=== PATIENT | male | born 1945 | race Caucasian/White ===

== ENCOUNTER 2016-12-31 09:22 | Outpatient (RCR) | payer MEDICARE | END 2017-01-11 | disposition home or self-care (01) | LOC: M PT 09:22 | PROVIDERS: ATTEND Orthopaedic Surgery | DX: Z51.89 Encounter for other specified aftercare (principal); M25.511 Pain in right shoulder | CPT/HCPCS: 97110; 97161; G8984; G8985 ==

== ENCOUNTER → 2017-02-04 | Outpatient (REF) | payer MEDICARE | LOC: M LAB REF 08:45 | PROVIDERS: ATTEND Internal Medicine Gastroenterology | DX: K50.90 Crohn's disease, unspecified, without complications (principal); K50.00 Crohn's disease of small intestine without complications; M46.1 Sacroiliitis, not elsewhere classified; R19.7 Diarrhea, unspecified ==

== ENCOUNTER → 2017-05-03 | Outpatient (CLI) | payer MEDICARE ==
[2017-05-03 12:07] LABS: MEAN CORPUSCULAR HEMOGLOBIN 31.2 pg (27.0-33.0); MEAN CORPUSCULAR HGB CONC 33.5 g/dl (32.0-36.5); MEAN CORPUSCULAR VOLUME 93.2 fl (80.0-96.0); PLATELET COUNT, AUTOMATED 227 10^3/uL (150-450); RED CELL DISTRIBUTION WIDTH 13.5 % (11.5-14.5)
[2017-05-03 12:51] LABS: ALBUMIN 4.1 GM/DL (3.2-5.2); ALBUMIN/GLOBULIN RATIO 1.32 (1.00-1.93); ALKALINE PHOSPHATASE 93 U/L (45-117); ALT/SGPT 26 U/L (12-78); ANION GAP 6 MEQ/L (8-16); AST/SGOT 19 U/L (7-37); BILIRUBIN,TOTAL 0.9 MG/DL (0.2-1.0); BLOOD UREA NITROGEN 10 MG/DL (7-18); CALCIUM LEVEL 9.6 MG/DL (8.8-10.2); CARBON DIOXIDE LEVEL 28 MEQ/L (21-32); CHLORIDE LEVEL 100 MEQ/L (98-107); CREATININE FOR GFR 0.76 MG/DL (0.70-1.30); GLOMERULAR FILTRATION RATE > 60.0 (>42); GLUCOSE, FASTING 89 MG/DL (83-110); POTASSIUM SERUM 4.4 MEQ/L (3.5-5.1); SODIUM LEVEL 134 MEQ/L (136-145); TOTAL PROTEIN 7.2 GM/DL (6.4-8.2)
[2017-05-03 13:02] LABS: ERYTHROCYTE SEDIMENTATION RATE 8 mm/hr (0-20)
== END ==
LOC: M LAB 11:00
PROVIDERS: ATTEND Internal Medicine Gastroenterology
DX: K50.00 Crohn's disease of small intestine without complications (principal)

== ENCOUNTER 2017-05-12 09:51 | Outpatient (RCR) | payer MEDICARE | END 2017-05-13 | LOC: M PT 09:51 | PROVIDERS: ATTEND Orthopaedic Surgery | DX: S46.011D Strain of muscle(s) and tendon(s) of the rotator cuff of right shoulder, subsequent encounter (principal); X58.XXXD Exposure to other specified factors, subsequent encounter; Y93.9 Activity, unspecified; Y92.9 Unspecified place or not applicable; Y99.8 Other external cause status | CPT/HCPCS: 97110; G8978; G8979 ==

== ENCOUNTER 2017-05-17 15:07 | Outpatient (RCR) | payer MEDICARE | END 2017-06-13 | LOC: M PT 15:07 | DX: S46.011D Strain of muscle(s) and tendon(s) of the rotator cuff of right shoulder, subsequent encounter (principal); M25.511 Pain in right shoulder | CPT/HCPCS: 97110 ==

== ENCOUNTER 2017-06-16 10:52 | Outpatient (RCR) | payer MEDICARE | END 2017-07-14 | LOC: M PT 10:52 | DX: S46.011D Strain of muscle(s) and tendon(s) of the rotator cuff of right shoulder, subsequent encounter (principal); M25.511 Pain in right shoulder | CPT/HCPCS: 97110 ==

== ENCOUNTER 2017-09-17 11:48 | Outpatient (RCR) | payer MEDICARE | END 2017-10-11 | LOC: M PT 11:48 | DX: Z51.89 Encounter for other specified aftercare (principal); M16.11 Unilateral primary osteoarthritis, right hip | CPT/HCPCS: 97110 ==

== ENCOUNTER → 2017-11-04 | Outpatient (REF) | payer MEDICARE ==
[2017-11-04 19:01] LABS: C REACTIVE PROTEIN QUANTITATIV 0.32 MG/DL (0.00-0.30)
== END ==
LOC: M LAB REF 17:04
DX: K50.00 Crohn's disease of small intestine without complications (principal)
CPT/HCPCS: 86140

== ENCOUNTER 2017-12-05 20:15 | Emergency (ER) | payer MEDICARE | END 2017-12-05 23:11 | disposition home or self-care (01) | LOC: M ED 20:15 | DX: S50.12XA Contusion of left forearm, initial encounter (principal); X58.XXXA Exposure to other specified factors, initial encounter; Y92.89 Other specified places as the place of occurrence of the external cause; I10 Essential (primary) hypertension; K50.90 Crohn's disease, unspecified, without complications; Z86.2 Personal history of diseases of the blood and blood-forming organs and certain disorders involving the immune mechanism; Z98.890 Other specified postprocedural states; Z79.82 Long term (current) use of aspirin; Z79.899 Other long term (current) drug therapy; Z79.52 Long term (current) use of systemic steroids; Z95.2 Presence of prosthetic heart valve | CPT/HCPCS: 76882 ==

== ENCOUNTER → 2018-02-07 | Outpatient (REF) | payer MEDICARE ==
[2018-02-07 19:31] LABS: C REACTIVE PROTEIN QUANTITATIV < 0.30 MG/DL (0.00-0.30)
== END ==
LOC: M LAB REF 17:08
DX: K50.00 Crohn's disease of small intestine without complications (principal)
CPT/HCPCS: 86140

== ENCOUNTER → 2018-03-14 | Outpatient (REF) | payer MEDICARE ==
[2018-03-14 14:02] LABS: INR 0.96; PROTHROMBIN TIME 12.9 SECONDS (12.1-14.4)
[2018-03-14 14:03] LABS: PARTIAL THROMBOPLASTIN TIME 31.9 SECONDS (25.4-37.6)
[2018-03-14 14:07] LABS: APPEARANCE, URINE HAZY (CLEAR); BACTERIA, URINE AUTO NEGATIVE (NEGATIVE); BILIRUBIN, URINE AUTO NEGATIVE (NEGATIVE); BLOOD, URINE BLOOD NEGATIVE (NEGATIVE); COLOR, URINE YELLOW (YELLOW); GLUCOSE, URINE (UA) AUTO NEGATIVE (NEGATIVE); KETONE, URINE AUTO NEGATIVE (NEGATIVE); LEUKOCYTE ESTERASE, URINE AUTO NEGATIVE (NEGATIVE); MUCUS, URINE SMALL (NEGATIVE); NITRITE, URINE AUTO NEGATIVE (NEGATIVE); PROTEIN, URINE AUTO NEGATIVE (NEGATIVE); RBC, URINE AUTO 4 /HPF (0-3); SPECIFIC GRAVITY URINE AUTO 1.017 (1.002-1.035); SQUAMOUS EPITHELIAL CELL UR AU 0 /HPF (0-6); UROBILINOGEN, URINE AUTO 0.2 mg/dL (0.0-2.0); WBC, URINE AUTO 5 /HPF (0-3)
== END ==
LOC: M LAB REF 13:48
DX: Z01.818 Encounter for other preprocedural examination (principal); Z79.01 Long term (current) use of anticoagulants
CPT/HCPCS: 85610

== ENCOUNTER 2018-03-16 09:07 | Outpatient (RCR) | payer MEDICARE | END 2018-04-13 | LOC: M PT 09:07 | DX: M16.11 Unilateral primary osteoarthritis, right hip (principal) | CPT/HCPCS: 97110 ==

== ENCOUNTER → 2018-03-21 | Outpatient (REF) | payer MEDICARE | LOC: M LAB REF 18:15 | DX: L81.9 Disorder of pigmentation, unspecified (principal); D75.9 Disease of blood and blood-forming organs, unspecified | CPT/HCPCS: 88305 ==

== ENCOUNTER → 2018-04-06 | Outpatient (REF) | payer MEDICARE ==
[2018-04-06 18:30] LABS: C REACTIVE PROTEIN QUANTITATIV 3.14 MG/DL (0.00-0.30)
== END ==
LOC: M LAB REF 16:59
DX: R50.9 Fever, unspecified (principal)
CPT/HCPCS: 86140

== ENCOUNTER → 2018-04-12 | Outpatient (REF) | payer MEDICARE | LOC: M LAB REF 16:50 | DX: M79.604 Pain in right leg (principal); Z96.641 Presence of right artificial hip joint; M16.11 Unilateral primary osteoarthritis, right hip | CPT/HCPCS: 86140 ==

== ENCOUNTER → 2018-04-12 | Outpatient (REF) | payer MEDICARE ==
[2018-04-12 14:10] LABS: C REACTIVE PROTEIN QUANTITATIV 3.03 MG/DL (0.00-0.30)
== END ==
LOC: M LAB REF 13:39
DX: M16.11 Unilateral primary osteoarthritis, right hip (principal)

== ENCOUNTER 2018-04-18 10:08 | Outpatient (RCR) | payer MEDICARE | END 2018-05-13 | disposition home or self-care (01) | LOC: M PT 10:08 | DX: C84.A0 Cutaneous T-cell lymphoma, unspecified, unspecified site (principal) | CPT/HCPCS: 97028 ==

== ENCOUNTER → 2018-04-18 | Outpatient (REF) | payer MEDICARE ==
[2018-04-18 18:05] LABS: BASO # 0.1 10^3/uL (0.0-0.2); BASO % 0.6 % (0.0-1.0); EOS # 0.3 10^3/uL (0.0-0.50); EOS % 3.5 % (0.0-3.0); HEMOGLOBIN 10.9 g/dl (13.5-17.5); IMMATURE GRANULOCYTE % 0.9 % (0-3.0); LYMPH # 1.7 10^3/uL (1.5-4.5); LYMPH % 19.4 % (24.0-44.0); MEAN CORPUSCULAR HEMOGLOBIN 30.6 pg (27.0-33.0); MEAN CORPUSCULAR HGB CONC 31.1 g/dl (32.0-36.5); MEAN CORPUSCULAR VOLUME 98.3 fl (80.0-96.0); MONO % 11.7 % (0.0-5.0); NEUTROPHILS # 5.5 10^3/uL (1.8-7.7); NEUTROPHILS % 63.9 % (36.0-66.0); PLATELET COUNT, AUTOMATED 429 10^3/uL (150-450); RED BLOOD COUNT 3.56 10^6/uL (4.30-6.10); RED CELL DISTRIBUTION WIDTH 13.8 % (11.5-14.5); WHITE BLOOD COUNT 8.7 10^3/uL (4.0-10.0)
[2018-04-18 18:26] LABS: ALBUMIN 4.1 GM/DL (3.2-5.2); ALBUMIN/GLOBULIN RATIO 1.32 (1.00-1.93); ALKALINE PHOSPHATASE 137 U/L (45-117); ALT/SGPT 18 U/L (12-78); ANION GAP 8 MEQ/L (8-16); AST/SGOT 21 U/L (7-37); BILIRUBIN,TOTAL 0.6 MG/DL (0.2-1.0); BLOOD UREA NITROGEN 12 MG/DL (7-18); CALCIUM LEVEL 9.1 MG/DL (8.8-10.2); CARBON DIOXIDE LEVEL 29 MEQ/L (21-32); CHLORIDE LEVEL 99 MEQ/L (98-107); CREATININE FOR GFR 0.73 MG/DL (0.70-1.30); FREE T4 0.93 NG/DL (0.76-1.46); GLOMERULAR FILTRATION RATE > 60.0 (>42); GLUCOSE, FASTING 92 MG/DL (70-100); LDH LACTATE DEHYDROGENASE 444 U/L (87-241); POTASSIUM SERUM 4.4 MEQ/L (3.5-5.1); SODIUM LEVEL 136 MEQ/L (136-145); TOTAL PROTEIN 7.2 GM/DL (6.4-8.2); URIC ACID 3.5 MG/DL (3.5-7.2)
[2018-04-18 19:07] LABS: HIV 1&2 SCREEN CENTAUR NEGATIVE (NEGATIVE)
[2018-04-18 19:17] LABS: SLIDE REVIEW Report; SOURCE PERIPHERAL SMEAR
== END ==
LOC: M LABDRAWP 15:08
DX: D53.9 Nutritional anemia, unspecified (principal)
CPT/HCPCS: 83615

== ENCOUNTER → 2018-06-13 | Outpatient (RCR) | payer MEDICARE ==
[~2018-06-13] MED LIST: ACID100C PO; ASPI81TA85 PO; CENTCHW4 PO; GABA-845 PO; LIPO FLAVONOID PO; LOSA-4; MAGN250T9 PO; METO25TA4 PO; PANT20TA2 PO; PRED5TA PO; SULF500T2; remicade IV
== END ==
LOC: M PT 05-16 12:22
PROVIDERS: ATTEND Orthopaedic Surgery
DX: C84.A0 Cutaneous T-cell lymphoma, unspecified, unspecified site (principal)

== ENCOUNTER → 2018-06-21 | Outpatient (CLI) | payer MEDICARE ==
[~2018-06-21] MED LIST changes: -LOSA-4; +LOSA100T50
== END ==
LOC: M LAB 15:10
PROVIDERS: ATTEND Internal Medicine Gastroenterology
DX: K50.00 Crohn's disease of small intestine without complications (principal)

== ENCOUNTER → 2018-07-12 | Outpatient (REF) | payer MEDICARE | LOC: M SFHCPLAZ 15:08 | PROVIDERS: ATTEND Dermatology | DX: C84.A0 Cutaneous T-cell lymphoma, unspecified, unspecified site (principal) ==

== ENCOUNTER 2018-07-13 11:00 | Outpatient (RCR) | payer MEDICARE | END 2018-07-14 | LOC: M PT 11:00 | PROVIDERS: ATTEND Orthopaedic Surgery | DX: C84.A0 Cutaneous T-cell lymphoma, unspecified, unspecified site (principal) ==

== ENCOUNTER → 2018-08-11 | Outpatient (RCR) | payer MEDICARE | LOC: M PT 07-15 11:09 | PROVIDERS: ATTEND Orthopaedic Surgery | DX: C84.A0 Cutaneous T-cell lymphoma, unspecified, unspecified site (principal) ==

== ENCOUNTER 2018-09-08 10:21 | Outpatient (RCR) | payer MEDICARE | END 2018-09-11 | LOC: M PT 10:21 | PROVIDERS: ATTEND Orthopaedic Surgery | DX: C84.A0 Cutaneous T-cell lymphoma, unspecified, unspecified site (principal) ==

== ENCOUNTER → 2018-09-19 | Outpatient (REF) | payer MEDICARE ==
[2018-09-19 18:06] LABS: ALT/SGPT 29 U/L (12-78); BILIRUBIN,TOTAL 0.5 MG/DL (0.2-1.0); BLOOD UREA NITROGEN 11 MG/DL (7-18); C REACTIVE PROTEIN QUANTITATIV < 0.30 MG/DL (0.00-0.30); CALCIUM LEVEL 9.1 MG/DL (8.8-10.2); CARBON DIOXIDE LEVEL 26 MEQ/L (21-32); CHLORIDE LEVEL 106 MEQ/L (98-107); CREATININE FOR GFR 0.94 MG/DL (0.70-1.30); GLOMERULAR FILTRATION RATE > 60.0 (>42); GLUCOSE, FASTING 122 MG/DL (70-100); POTASSIUM SERUM 4.4 MEQ/L (3.5-5.1); SODIUM LEVEL 139 MEQ/L (136-145); TOTAL PROTEIN 7.1 GM/DL (6.4-8.2)
== END ==
LOC: M LABDRAWP 16:54
PROVIDERS: ATTEND Surgery
DX: K50.00 Crohn's disease of small intestine without complications (principal)

== ENCOUNTER 2018-10-06 11:35 | Outpatient (RCR) | payer MEDICARE | END 2018-10-11 | LOC: M PT 11:35 | PROVIDERS: ATTEND Orthopaedic Surgery | DX: C84.A0 Cutaneous T-cell lymphoma, unspecified, unspecified site (principal) ==

== ENCOUNTER → 2018-10-14 | Outpatient (CLI) | payer MEDICARE ==
[2018-10-14 11:12] LABS: BLOOD UREA NITROGEN 11 MG/DL (7-18); CREATININE FOR GFR 0.92 MG/DL (0.70-1.30); GLOMERULAR FILTRATION RATE > 60.0 (>42)
== END ==
LOC: M LAB 09:58
PROVIDERS: ATTEND Orthopaedic Surgery
DX: Z00.00 Encounter for general adult medical examination without abnormal findings (principal)

== ENCOUNTER 2018-11-08 10:30 | Outpatient (RCR) | payer MEDICARE | END 2018-11-11 | LOC: M PT 10:30 | PROVIDERS: ATTEND Orthopaedic Surgery | DX: C84.40 Peripheral T-cell lymphoma, not elsewhere classified, unspecified site (principal) ==

== ENCOUNTER → 2018-12-08 | Outpatient (REF) | payer MEDICARE | LOC: M LAB REF 12:26 | PROVIDERS: ATTEND Internal Medicine | DX: K50.00 Crohn's disease of small intestine without complications (principal) ==

== ENCOUNTER → 2019-03-13 | Outpatient (CLI) | payer MEDICARE ==
[2019-03-13 12:16] LABS: PERCENT SATURATION 41.9 % (19.7-50.0)
== END ==
LOC: M LAB 10:47
PROVIDERS: ATTEND Orthopaedic Surgery
DX: M25.559 Pain in unspecified hip (principal); D63.8 Anemia in other chronic diseases classified elsewhere; M16.7 Other unilateral secondary osteoarthritis of hip; K50.00 Crohn's disease of small intestine without complications

== ENCOUNTER → 2019-03-13 | Outpatient (CLI) | payer MEDICARE ==
[2019-03-13 11:42] LABS: HEMATOCRIT 45.3 % (42.0-52.0); MEAN CORPUSCULAR HEMOGLOBIN 32.7 pg (27.0-33.0); MEAN CORPUSCULAR HGB CONC 33.1 g/dl (32.0-36.5); MEAN CORPUSCULAR VOLUME 98.7 fl (80.0-96.0); PLATELET COUNT, AUTOMATED 149 10^3/uL (150-450); RED BLOOD COUNT 4.59 10^6/uL (4.30-6.10); WHITE BLOOD COUNT 8.5 10^3/uL (4.0-10.0)
[2019-03-13 12:02] LABS: ERYTHROCYTE SEDIMENTATION RATE 7 mm/hr (0-20)
[2019-03-13 12:17] LABS: ALBUMIN 4.1 GM/DL (3.2-5.2); ALT/SGPT 36 U/L (12-78); BLOOD UREA NITROGEN 10 MG/DL (7-18); C REACTIVE PROTEIN QUANTITATIV < 0.30 MG/DL (0.00-0.30); CALCIUM LEVEL 9.4 MG/DL (8.8-10.2); CARBON DIOXIDE LEVEL 29 MEQ/L (21-32); CHLORIDE LEVEL 103 MEQ/L (98-107); CREATININE FOR GFR 0.92 MG/DL (0.70-1.30); GLOMERULAR FILTRATION RATE > 60.0 (>42); GLUCOSE, FASTING 95 MG/DL (70-100); SODIUM LEVEL 139 MEQ/L (136-145); TOTAL PROTEIN 7.6 GM/DL (6.4-8.2)
== END ==
LOC: M LAB 10:51
PROVIDERS: ATTEND Internal Medicine Gastroenterology
DX: K50.00 Crohn's disease of small intestine without complications (principal)

== ENCOUNTER 2019-03-20 09:57 | Outpatient (RCR) | payer MEDICARE | END 2019-04-13 | LOC: M PT 09:57 | PROVIDERS: ATTEND Orthopaedic Surgery | DX: M16.7 Other unilateral secondary osteoarthritis of hip (principal); M25.559 Pain in unspecified hip ==

== ENCOUNTER 2019-05-10 11:37 | Outpatient (RCR) | payer MEDICARE | END 2019-05-13 | LOC: M PT 11:37 | PROVIDERS: ATTEND Orthopaedic Surgery | DX: Z51.89 Encounter for other specified aftercare (principal); M16.7 Other unilateral secondary osteoarthritis of hip; M25.552 Pain in left hip ==

== ENCOUNTER 2019-05-26 11:02 | Outpatient (RCR) | payer MEDICARE | END 2019-06-13 | LOC: M PT 11:02 | PROVIDERS: ATTEND Orthopaedic Surgery | DX: Z51.89 Encounter for other specified aftercare (principal); M16.7 Other unilateral secondary osteoarthritis of hip; M25.552 Pain in left hip ==

== ENCOUNTER → 2019-06-22 | Outpatient (REF) | payer MEDICARE | LOC: M LAB REF 09:34 | PROVIDERS: ATTEND Dermatology | DX: C44.1122 Basal cell carcinoma of skin of right lower eyelid, including canthus (principal); D23.5 Other benign neoplasm of skin of trunk ==

== ENCOUNTER → 2019-07-04 | Outpatient (CLI) | payer MEDICARE ==
[2019-07-04 15:43] LABS: HEMATOCRIT 45.1 % (42.0-52.0); HEMOGLOBIN 14.8 g/dl (13.5-17.5); MEAN CORPUSCULAR HGB CONC 32.8 g/dl (32.0-36.5); MEAN CORPUSCULAR VOLUME 91.3 fl (80.0-96.0); PLATELET COUNT, AUTOMATED 184 10^3/uL (150-450); RED BLOOD COUNT 4.94 10^6/uL (4.30-6.10); WHITE BLOOD COUNT 9.9 10^3/uL (4.0-10.0)
[2019-07-04 16:15] LABS: ALT/SGPT 28 U/L (12-78); BILIRUBIN,TOTAL 0.5 MG/DL (0.2-1.0); BLOOD UREA NITROGEN 12 MG/DL (7-18); C REACTIVE PROTEIN QUANTITATIV < 0.30 MG/DL (0.00-0.30); CALCIUM LEVEL 8.8 MG/DL (8.8-10.2); CARBON DIOXIDE LEVEL 27 MEQ/L (21-32); CHLORIDE LEVEL 104 MEQ/L (98-107); CREATININE FOR GFR 0.77 MG/DL (0.70-1.30); ERYTHROCYTE SEDIMENTATION RATE 3 mm/hr (0-20); GLOMERULAR FILTRATION RATE > 60.0 (>42); GLUCOSE, FASTING 115 MG/DL (70-100); POTASSIUM SERUM 4.2 MEQ/L (3.5-5.1); SODIUM LEVEL 139 MEQ/L (136-145); TOTAL PROTEIN 7.3 GM/DL (6.4-8.2)
== END ==
LOC: M LAB 14:40
PROVIDERS: ATTEND Internal Medicine Gastroenterology
DX: K50.00 Crohn's disease of small intestine without complications (principal)

== ENCOUNTER → 2019-10-09 | Outpatient (REF) | payer MEDICARE | LOC: M LAB REF 09:18 | PROVIDERS: ATTEND Dermatology | DX: C44.1122 Basal cell carcinoma of skin of right lower eyelid, including canthus (principal); L90.5 Scar conditions and fibrosis of skin ==

== ENCOUNTER → 2019-11-28 | Outpatient (REF) | payer MEDICARE ==
[~2019-11-28] MED LIST changes: -ASPI81TA85 PO; +ASPI81TA86 PO; -PANT20TA2 PO; +PANT20TA6 PO
== END ==
LOC: M LAB REF 11:28
PROVIDERS: ATTEND Internal Medicine
DX: K50.00 Crohn's disease of small intestine without complications (principal)

== ENCOUNTER 2020-02-06 11:22 | Outpatient (RCR) | payer MEDICARE | END 2020-02-12 | LOC: M PT 11:22 | PROVIDERS: ATTEND Orthopaedic Surgery | DX: M25.512 Pain in left shoulder (principal) ==

== ENCOUNTER 2020-02-14 11:32 | Outpatient (RCR) | payer MEDICARE | END 2020-03-13 | LOC: M PT 11:32 | PROVIDERS: ATTEND Orthopaedic Surgery | DX: M25.512 Pain in left shoulder (principal) ==

== ENCOUNTER → 2020-03-13 | Outpatient (REF) | payer MEDICARE | LOC: M LAB REF 15:05 | PROVIDERS: ATTEND Dermatology | DX: C44.529 Squamous cell carcinoma of skin of other part of trunk (principal) ==

== ENCOUNTER → 2020-03-29 | Outpatient (CLI) | payer MEDICARE | LOC: M LABSMTC 12:53 | DX: Z01.812 Encounter for preprocedural laboratory examination (principal); Z20.828 Contact with and (suspected) exposure to other viral communicable diseases | CPT/HCPCS: C9803; U0003 ==

== ENCOUNTER → 2020-04-01 | Outpatient (REF) | payer MEDICARE | LOC: M LAB REF 12:23 | PROVIDERS: ATTEND Internal Medicine | DX: K50.012 Crohn's disease of small intestine with intestinal obstruction (principal) ==

== ENCOUNTER → 2020-07-15 | Outpatient (REF) | payer MEDICARE | LOC: M LAB REF 17:06 | PROVIDERS: ATTEND Dermatology | DX: L90.5 Scar conditions and fibrosis of skin (principal) ==

== ENCOUNTER → 2020-10-04 | Outpatient (REF) | payer MEDICARE | LOC: M LAB REF 11:26 | PROVIDERS: ATTEND Nurse Practitioner Family | DX: K50.00 Crohn's disease of small intestine without complications (principal); K59.1 Functional diarrhea ==

== ENCOUNTER → 2020-11-27 | Outpatient (REF) | payer MEDICARE ==
[~2020-11-27] MED LIST changes: +GABA-283 PO; -GABA-845 PO
[2020-11-27 13:39] LABS: APPEARANCE, URINE CLEAR (CLEAR); BACTERIA, URINE AUTO NEGATIVE (NEGATIVE); BILIRUBIN, URINE AUTO NEGATIVE (NEGATIVE); BLOOD, URINE BLOOD 1+ (NEGATIVE); COLOR, URINE AMBER (YELLOW); GLUCOSE, URINE (UA) AUTO NEGATIVE (NEGATIVE); KETONE, URINE AUTO NEGATIVE (NEGATIVE); LEUKOCYTE ESTERASE, URINE AUTO NEGATIVE (NEGATIVE); NITRITE, URINE AUTO NEGATIVE (NEGATIVE); PROTEIN, URINE AUTO NEGATIVE (NEGATIVE); RBC, URINE AUTO 0 /HPF (0-3); SPECIFIC GRAVITY URINE AUTO 1.018 (1.002-1.035); SQUAMOUS EPITHELIAL CELL UR AU 0 /HPF (0-6); UROBILINOGEN, URINE AUTO 0.2 mg/dL (0.0-2.0); WBC, URINE AUTO 0 /HPF (0-3)
== END ==
LOC: M LAB REF 12:05
PROVIDERS: ATTEND Internal Medicine
DX: K50.00 Crohn's disease of small intestine without complications (principal); R31.9 Hematuria, unspecified

== ENCOUNTER → 2021-01-20 | Outpatient (CLI) | payer MEDICARE ==
[~2021-01-20] MED LIST changes: +LOSA100T45; -LOSA100T50
== END ==
LOC: M WUC 13:31
PROVIDERS: ATTEND Physician Assistant
DX: M25.552 Pain in left hip (principal); M54.5 Low back pain; Z96.642 Presence of left artificial hip joint; Z98.1 Arthrodesis status; M25.78 Osteophyte, vertebrae

== ENCOUNTER → 2021-04-02 | Outpatient (REF) | payer MEDICARE ==
[~2021-04-02] MED LIST changes: -LOSA100T45; +LOSA100T50
== END ==
LOC: M LAB REF 16:18
PROVIDERS: ATTEND Internal Medicine
DX: Z51.81 Encounter for therapeutic drug level monitoring (principal)

== ENCOUNTER → 2021-05-07 | Outpatient (CLI) | payer MEDICARE | LOC: M LABSMTC 11:29 | PROVIDERS: ATTEND Orthopaedic Surgery | DX: Z01.812 Encounter for preprocedural laboratory examination (principal); Z20.822 Contact with and (suspected) exposure to COVID-19 ==

== ENCOUNTER → 2021-05-23 | Outpatient (CLI) | payer MEDICARE ==
[~2021-05-23] MED LIST changes: +LOSA100T45; -LOSA100T50
[2021-05-23 12:11] LABS: HEMATOCRIT 44.2 % (42.0-52.0); HEMOGLOBIN 14.7 g/dl (13.5-17.5); MEAN CORPUSCULAR HEMOGLOBIN 32.1 pg (27.0-33.0); MEAN CORPUSCULAR HGB CONC 33.3 g/dl (32.0-36.5); MEAN CORPUSCULAR VOLUME 96.5 fl (80.0-96.0); PLATELET COUNT, AUTOMATED 165 10^3/uL (150-450); RED BLOOD COUNT 4.58 10^6/uL (4.30-6.10); WHITE BLOOD COUNT 8.1 10^3/uL (4.0-10.0)
[2021-05-23 12:39] LABS: ALBUMIN 4.1 GM/DL (3.2-5.2); ALT/SGPT 35 U/L (12-78); BILIRUBIN,TOTAL 0.8 MG/DL (0.2-1.0); BLOOD UREA NITROGEN 11 MG/DL (7-18); CALCIUM LEVEL 9.2 MG/DL (8.8-10.2); CARBON DIOXIDE LEVEL 28 MEQ/L (21-32); CHLORIDE LEVEL 102 MEQ/L (98-107); GLOMERULAR FILTRATION RATE > 60.0 (>42); GLUCOSE, FASTING 116 MG/DL (70-100); MAGNESIUM LEVEL 2.4 MG/DL (1.8-2.4); POTASSIUM SERUM 4.3 MEQ/L (3.5-5.1); SODIUM LEVEL 137 MEQ/L (136-145); TOTAL PROTEIN 7.4 GM/DL (6.4-8.2)
== END ==
LOC: M LAB 11:10
PROVIDERS: ATTEND Physician Assistant
DX: I49.3 Ventricular premature depolarization (principal); K50.00 Crohn's disease of small intestine without complications

== ENCOUNTER → 2021-05-23 | Outpatient (CLI) | payer MEDICARE ==
[~2021-05-23] MED LIST changes: -LOSA100T45; +LOSA100T50
== END ==
LOC: M LAB 11:14
PROVIDERS: ATTEND Internal Medicine Gastroenterology
DX: K50.00 Crohn's disease of small intestine without complications (principal)

== ENCOUNTER → 2021-12-09 | Outpatient (REF) | payer MEDICARE, BC ==
[~2021-12-09] MED LIST changes: +LOSA100T45; -LOSA100T50
== END ==
LOC: M LAB REF 16:41
PROVIDERS: ATTEND Internal Medicine
DX: K50.00 Crohn's disease of small intestine without complications (principal); K44.9 Diaphragmatic hernia without obstruction or gangrene; Z86.010 Personal history of colon polyps

== ENCOUNTER → 2022-03-16 | Outpatient (REF) | payer MEDICARE, BC | LOC: M LAB REF 10:18 | PROVIDERS: ATTEND Internal Medicine | DX: I10 Essential (primary) hypertension (principal) ==

== ENCOUNTER → 2022-05-18 | Outpatient (REF) | payer MEDICARE, BC | LOC: M SFHCDERM 17:06 | PROVIDERS: ATTEND Physician Assistant | DX: C44.509 Unspecified malignant neoplasm of skin of other part of trunk (principal) ==

== ENCOUNTER → 2022-06-22 | Outpatient (REF) | payer MEDICARE, BC | LOC: M LAB REF 11:57 | PROVIDERS: ATTEND Internal Medicine | DX: K50.00 Crohn's disease of small intestine without complications (principal) ==

== ENCOUNTER → 2022-06-23 | Outpatient (REF) | payer MEDICARE, BC | LOC: M LAB REF 17:13 | PROVIDERS: ATTEND Surgery | DX: C44.519 Basal cell carcinoma of skin of other part of trunk (principal) ==

== ENCOUNTER → 2022-07-07 | Outpatient (CLI) | payer MEDICARE, BC | LOC: M WHC 10:04 | PROVIDERS: ATTEND Internal Medicine | DX: Z13.820 Encounter for screening for osteoporosis (principal); Z79.52 Long term (current) use of systemic steroids ==

== ENCOUNTER → 2022-11-04 | Outpatient (REF) | payer MEDICARE, BC ==
[~2022-11-04] MED LIST changes: -LOSA100T45; +LOSA100T46
[2022-11-05 14:29] LABS: PERCENT SATURATION 8.5 % (19.7-50.0)
[2022-11-05 14:32] LABS: FERRITIN 8.9 NG/ML (10.5-307.3)
== END ==
LOC: M LAB REF 16:20
PROVIDERS: ATTEND Internal Medicine
DX: K50.00 Crohn's disease of small intestine without complications (principal); D64.9 Anemia, unspecified

== ENCOUNTER → 2023-01-06 | Outpatient (REF) | payer MEDICARE, BC | LOC: M LAB REF 12:29 | PROVIDERS: ATTEND Internal Medicine | DX: K50.00 Crohn's disease of small intestine without complications (principal) ==

== ENCOUNTER → 2023-02-24 | Outpatient (CLI) | payer MEDICARE, BC ==
[~2023-02-24] MED LIST changes: -GABA-283 PO; +GABA-284 PO
== END ==
LOC: M RAD 09:57
PROVIDERS: ATTEND Internal Medicine
DX: I86.4 Gastric varices (principal); K80.20 Calculus of gallbladder without cholecystitis without obstruction; N28.1 Cyst of kidney, acquired

== ENCOUNTER → 2023-03-23 | Outpatient (CLI) | payer MEDICARE, BC ==
[2023-03-23 18:31] LABS: HEMATOCRIT 41.8 % (42.0-52.0); HEMOGLOBIN 13.6 g/dl (13.5-17.5); MEAN CORPUSCULAR HEMOGLOBIN 30.4 pg (27.0-33.0); MEAN CORPUSCULAR HGB CONC 32.5 g/dl (32.0-36.5); MEAN CORPUSCULAR VOLUME 93.3 fl (80.0-96.0); PLATELET COUNT, AUTOMATED 142 10^3/uL (150-450); RED BLOOD COUNT 4.48 10^6/uL (4.30-6.10); WHITE BLOOD COUNT 8.1 10^3/uL (4.0-10.0)
[2023-03-23 18:41] LABS: ERYTHROCYTE SEDIMENTATION RATE 19 mm/hr (0-20)
[2023-03-23 18:55] LABS: C REACTIVE PROTEIN QUANTITATIV < 0.40 MG/DL (<1.0)
[2023-03-23 18:57] LABS: ALBUMIN 4.1 G/DL (3.2-5.2); ALKALINE PHOSPHATASE 114 U/L (46-116); ALT/SGPT 28 U/L (7.0-40); AST/SGOT 27 U/L (<34); BLOOD UREA NITROGEN 12 MG/DL (9-23); CALCIUM LEVEL 8.9 MG/DL (8.3-10.6); CARBON DIOXIDE LEVEL 29 MMOL/L (20-31); CHLORIDE LEVEL 102 MMOL/L (98-107); CREATININE FOR GFR 0.75 MG/DL (0.70-1.30); GLOMERULAR FILTRATION RATE > 60.0 (>42); GLUCOSE, FASTING 107 MG/DL (74-106); POTASSIUM SERUM 4.2 MMOL/L (3.5-5.1); SODIUM LEVEL 137 MMOL/L (136-145); TOTAL PROTEIN 7.3 G/DL (5.7-8.2)
== END ==
LOC: M WUC 15:06
PROVIDERS: ATTEND Internal Medicine Gastroenterology
DX: K50.00 Crohn's disease of small intestine without complications (principal)

== ENCOUNTER → 2023-05-13 | Outpatient (CLI) | payer MEDICARE, BC | LOC: M RAD 11:13 | PROVIDERS: ATTEND Physician Assistant | DX: I65.23 Occlusion and stenosis of bilateral carotid arteries (principal) ==

== ENCOUNTER → 2023-05-20 | Outpatient (REF) | payer MEDICARE, BC | LOC: M SFHCDERM 14:06 | PROVIDERS: ATTEND Physician Assistant | DX: C44.519 Basal cell carcinoma of skin of other part of trunk (principal) ==

== ENCOUNTER → 2023-10-13 | Outpatient (REF) | payer MEDICARE, BC | LOC: M LAB REF 16:45 | PROVIDERS: ATTEND Internal Medicine | DX: D50.9 Iron deficiency anemia, unspecified (principal) ==

== ENCOUNTER → 2023-11-19 | Outpatient (CLI) | payer MEDICARE | LOC: M EKG 12:27 | PROVIDERS: ATTEND Physician Assistant | DX: I44.7 Left bundle-branch block, unspecified (principal); I49.9 Cardiac arrhythmia, unspecified; R94.39 Abnormal result of other cardiovascular function study ==

== ENCOUNTER → 2024-01-03 | Outpatient (REF) | payer MEDICARE ==
[2024-01-03 17:57] LABS: C REACTIVE PROTEIN QUANTITATIV < 0.40 MG/DL (<1.0)
[2024-01-03 18:01] LABS: FERRITIN 18.2 NG/ML (10.5-307.3)
[2024-01-04 13:19] LABS: IRON (FE) 61 UG/DL (65-175); PERCENT SATURATION 15.6 % (19.7-50.0); TOTAL IRON BINDING CAPACITY 392 UG/DL (250-425)
== END ==
LOC: M LAB REF 16:39
PROVIDERS: ATTEND Internal Medicine
DX: K50.00 Crohn's disease of small intestine without complications (principal); K44.9 Diaphragmatic hernia without obstruction or gangrene; Z86.010 Personal history of colon polyps

== ENCOUNTER → 2024-03-21 | Outpatient (REF) | payer MEDICARE ==
[2024-03-21 14:27] LABS: APPEARANCE, URINE CLEAR (CLEAR); BACTERIA, URINE AUTO NEGATIVE (NEGATIVE); BILIRUBIN, URINE AUTO NEGATIVE (NEGATIVE); BLOOD, URINE BLOOD NEGATIVE (NEGATIVE); COLOR, URINE AMBER (YELLOW); GLUCOSE, URINE (UA) AUTO NEGATIVE (NEGATIVE); KETONE, URINE AUTO NEGATIVE (NEGATIVE); LEUKOCYTE ESTERASE, URINE AUTO NEGATIVE (NEGATIVE); NITRITE, URINE AUTO NEGATIVE (NEGATIVE); PROTEIN, URINE AUTO NEGATIVE (NEGATIVE); RBC, URINE AUTO 2 /HPF (0-3); SPECIFIC GRAVITY URINE AUTO 1.012 (1.002-1.035); SQUAMOUS EPITHELIAL CELL UR AU 0 /HPF (0-6); UROBILINOGEN, URINE AUTO 0.2 mg/dL (0.0-2.0); WBC, URINE AUTO 0 /HPF (0-3)
== END ==
LOC: M LAB REF 12:05
PROVIDERS: ATTEND Internal Medicine
DX: K74.01 Hepatic fibrosis, early fibrosis (principal); K44.9 Diaphragmatic hernia without obstruction or gangrene; K50.00 Crohn's disease of small intestine without complications

== ENCOUNTER → 2024-03-24 | Outpatient (CLI) | payer MEDICARE ==
[~2024-03-24] MED LIST changes: +ISOVUE-370 76% 100ML VIAL As Ordered ONE
== END ==
LOC: M RAD 15:25
PROVIDERS: ATTEND Nurse Practitioner Family
DX: Z86.79 Personal history of other diseases of the circulatory system (principal); I65.21 Occlusion and stenosis of right carotid artery
CPT/HCPCS: 70496; 70498; Q9967

== ENCOUNTER → 2024-05-26 | Outpatient (CLI) | payer MEDICARE ==
[~2024-05-26] MED LIST changes: -ISOVUE-370 76% 100ML VIAL As Ordered ONE
== END ==
LOC: M RAD 11:38
PROVIDERS: ATTEND Internal Medicine Gastroenterology
DX: R74.8 Abnormal levels of other serum enzymes (principal); Z90.49 Acquired absence of other specified parts of digestive tract

== ENCOUNTER → 2024-06-01 | Outpatient (CLI) | payer MEDICARE ==
[2024-06-01 12:06] LABS: HEMATOCRIT 38.9 % (42.0-52.0); HEMOGLOBIN 12.8 g/dl (13.5-17.5); MEAN CORPUSCULAR HEMOGLOBIN 33.7 pg (27.0-33.0); MEAN CORPUSCULAR HGB CONC 32.9 g/dl (32.0-36.5); MEAN CORPUSCULAR VOLUME 102.4 fl (80.0-96.0); PLATELET COUNT, AUTOMATED 154 10^3/uL (150-450)
[2024-06-01 12:37] LABS: C REACTIVE PROTEIN QUANTITATIV < 0.50 MG/DL (<1.0)
[2024-06-01 12:38] LABS: ALBUMIN 3.9 G/DL (3.2-5.2); ALKALINE PHOSPHATASE 108 U/L (40-129); ALT/SGPT 24 U/L (7.0-40); AST/SGOT 23 U/L (<34); BILIRUBIN,TOTAL 0.8 MG/DL (0.3-1.2); BLOOD UREA NITROGEN 14 MG/DL (9-23); CALCIUM LEVEL 9.2 MG/DL (8.3-10.6); CARBON DIOXIDE LEVEL 29 MMOL/L (20-31); CHLORIDE LEVEL 107 MMOL/L (98-107); CREATININE FOR GFR 0.81 MG/DL (0.70-1.30); GLOMERULAR FILTRATION RATE > 60.0 (>35); GLUCOSE, FASTING 109 MG/DL (74-106); POTASSIUM SERUM 4.2 MMOL/L (3.5-5.1); SODIUM LEVEL 143 MMOL/L (136-145); TOTAL PROTEIN 7.2 G/DL (5.7-8.2)
[2024-06-01 12:54] LABS: ERYTHROCYTE SEDIMENTATION RATE 8 mm/hr (0-20)
== END ==
LOC: M LAB 10:28
PROVIDERS: ATTEND Internal Medicine Gastroenterology
DX: K50.00 Crohn's disease of small intestine without complications (principal); K57.30 Diverticulosis of large intestine without perforation or abscess without bleeding; Z86.0101 Personal history of adenomatous and serrated colon polyps; K76.89 Other specified diseases of liver

== ENCOUNTER → 2024-06-06 | Outpatient (CLI) | payer MEDICARE ==
[~2024-06-06] MED LIST changes: +ISOVUE-370 76% 100ML VIAL ONE
== END ==
LOC: M PLAIMG 09:24
PROVIDERS: ATTEND Internal Medicine Gastroenterology
DX: K50.00 Crohn's disease of small intestine without complications (principal); K76.89 Other specified diseases of liver; K57.30 Diverticulosis of large intestine without perforation or abscess without bleeding; Z86.0100 Personal history of colon polyps, unspecified; N40.1 Benign prostatic hyperplasia with lower urinary tract symptoms
CPT/HCPCS: 74177; Q9967

== ENCOUNTER → 2024-06-19 | Outpatient (REF) | payer MEDICARE ==
[~2024-06-19] MED LIST changes: -ISOVUE-370 76% 100ML VIAL ONE
[2024-06-21 12:08] LABS: QuantiFERON-TB Gold Plus NEGATIVE (NEGATIVE)
== END ==
LOC: M LAB REF 11:39
PROVIDERS: ATTEND Internal Medicine
DX: K50.00 Crohn's disease of small intestine without complications (principal)

== ENCOUNTER → 2024-09-25 | Outpatient (REF) | payer MEDICARE, BC | LOC: M LAB REF 11:54 | PROVIDERS: ATTEND Internal Medicine | DX: D50.9 Iron deficiency anemia, unspecified (principal) ==

== ENCOUNTER → 2024-10-09 | Outpatient (CLI) | payer MEDICARE, BC | LOC: M WUC 11:20 | PROVIDERS: ATTEND Student in an Organized Health Care Education/Training Program | DX: M54.2 Cervicalgia (principal) ==

== ENCOUNTER → 2024-10-10 | Outpatient (CLI) | payer MEDICARE ==
[2024-10-10 15:47] LABS: CREATININE FOR GFR 0.79 MG/DL (0.70-1.30); GLOMERULAR FILTRATION RATE 89.8 (>35)
== END ==
LOC: M LAB 14:46
PROVIDERS: ATTEND Psychiatry & Neurology Neurology
DX: I10 Essential (primary) hypertension (principal)

== ENCOUNTER → 2024-10-31 | Outpatient (REF) | payer MEDICARE ==
[2024-10-31 13:25] LABS: C REACTIVE PROTEIN QUANTITATIV < 0.50 MG/DL (<1.0)
[2024-10-31 13:26] LABS: TOTAL 25(OH) VITAMIN D 47.3 NG/ML (20.0-100.0)
[2024-10-31 13:27] LABS: FERRITIN 30.7 NG/ML (10.5-307.3)
[2024-10-31 13:28] LABS: VITAMIN B12 LEVEL 524 PG/ML (211-911)
== END ==
LOC: M LAB REF 12:17
PROVIDERS: ATTEND Internal Medicine
DX: D50.9 Iron deficiency anemia, unspecified (principal); K50.00 Crohn's disease of small intestine without complications

== ENCOUNTER → 2024-12-09 | Outpatient (CLI) | payer MEDICARE ==
[2024-12-09 14:48] LABS: ALBUMIN 4.1 G/DL (3.2-5.2); ALKALINE PHOSPHATASE 112 U/L (40-129); ALT/SGPT 24 U/L (7.0-40); AST/SGOT 29 U/L (<34); BILIRUBIN,DIRECT 0.3 MG/DL (<0.4); BILIRUBIN,TOTAL 0.6 MG/DL (0.3-1.2); IRON (FE) 64 UG/DL (65-175); PERCENT SATURATION 17.7 % (19.7-50.0); TOTAL IRON BINDING CAPACITY 362 UG/DL (250-425); TOTAL PROTEIN 7.2 G/DL (5.7-8.2)
[2024-12-09 14:52] LABS: FERRITIN 36.7 NG/ML (10.5-307.3); THYROID STIMULATING HORMONE 2.174 uIU/ML (0.55-4.78)
[2024-12-09 15:25] LABS: HEPATITIS C VIRUS ABY INDEX 0.04 INDEX (<0.8)
[2024-12-09 15:50] LABS: HEPATITIS B SURFACE ANTIBODY NEGATIVE (POSITIVE)
[2024-12-09 16:01] LABS: HEPATITIS B SURFACE ANTIGEN NEGATIVE (NEGATIVE)
[2024-12-11 16:22] LABS: T P ELECTROPHORESIS SO 7.1 g/dL (6.1-8.1)
[2024-12-12 10:48] LABS: HEPATITIS A IgG TOTAL REACTIVE (NON-REACTIVE)
[2024-12-12 12:03] LABS: ALPHA 1 ANTITRYPSIN 126 mg/dL (83-199)
[2024-12-12 13:33] LABS: ALBUMIN SPEP 4.3 g/dL (3.8-4.8); ALPHA-1-GLOBULINS SO 0.2 g/dL (0.2-0.3); ALPHA-2-GLOBULINS SO 0.6 g/dL (0.5-0.9); BETA 2 GLOBULIN 0.4 g/dL (0.2-0.5); BETA-GLOBULIN SO 0.4 g/dL (0.4-0.6); GAMMA GLOBULINS SO 1.1 g/dL (0.8-1.7)
[2024-12-12 15:24] LABS: ANTI-MITOCHONDRIAL ANTIBODY NEGATIVE (NEGATIVE)
[2024-12-12 19:31] LABS: ANA PATTERN Nuclear, Speckled (NEGATIVE); ANA PATTERN 2 Nuclear, Homogeneous; ANA SCREEN, IFA POSITIVE (NEGATIVE)
[2024-12-13 01:38] LABS: TISSUE TRANSGLUTAMINASE IgA < 1.0 U/mL (<15.0)
[2024-12-13 02:54] LABS: LIVER-KIDNEY MICROSOMAL ABY <= 20.0 U (<=20.0)
[2024-12-14 02:16] LABS: ANTI-SMOOTH MUSCLE ANTIBODY < 20 U (<20)
== END ==
LOC: M LAB 13:08
PROVIDERS: ATTEND Internal Medicine Gastroenterology
DX: K50.00 Crohn's disease of small intestine without complications (principal); R19.7 Diarrhea, unspecified; Z86.0101 Personal history of adenomatous and serrated colon polyps; Z11.59 Encounter for screening for other viral diseases

== ENCOUNTER → 2025-01-10 | Outpatient (CLI) | payer MEDICARE | LOC: M RAD 09:15 | PROVIDERS: ATTEND Internal Medicine Gastroenterology | DX: N28.1 Cyst of kidney, acquired (principal); Z90.49 Acquired absence of other specified parts of digestive tract ==

== ENCOUNTER → 2025-03-15 | Outpatient (CLI) | payer MEDICARE ==
[2025-03-15 12:03] LABS: PLATELET COUNT, AUTOMATED 122 10^3/uL (150-450)
[2025-03-15 12:07] LABS: ERYTHROCYTE SEDIMENTATION RATE 12 mm/hr (0-20)
[2025-03-15 12:26] LABS: ALT/SGPT 22 U/L (7.0-40); AST/SGOT 23 U/L (<34); C REACTIVE PROTEIN QUANTITATIV < 0.50 MG/DL (<1.0); CALCIUM LEVEL 8.8 MG/DL (8.3-10.6); CARBON DIOXIDE LEVEL 28 MMOL/L (20-31); CHLORIDE LEVEL 105 MMOL/L (98-107); CREATININE FOR GFR 0.90 MG/DL (0.70-1.30); GLOMERULAR FILTRATION RATE 85.8 (>35); POTASSIUM SERUM 4.3 MMOL/L (3.5-5.1); SODIUM LEVEL 136 MMOL/L (136-145)
[2025-03-15 12:28] LABS: TOTAL 25(OH) VITAMIN D 52.6 NG/ML (20.0-100.0); VITAMIN B12 LEVEL 463 PG/ML (211-911)
== END ==
LOC: M LAB 11:28
PROVIDERS: ATTEND Internal Medicine Gastroenterology
DX: K50.00 Crohn's disease of small intestine without complications (principal)

== ENCOUNTER → 2025-06-01 | Outpatient (CLI) | payer MEDICARE ==
[2025-06-01 12:56] LABS: PLATELET COUNT, AUTOMATED 147 10^3/uL (150-450)
[2025-06-01 13:25] LABS: ALT/SGPT 20.0 U/L (7.0-40); AST/SGOT 25.0 U/L (<34); CALCIUM LEVEL 8.9 MG/DL (8.3-10.6); CARBON DIOXIDE LEVEL 26.0 MMOL/L (20-31); CHLORIDE LEVEL 105.0 MMOL/L (98-107); CREATININE FOR GFR 0.81 MG/DL (0.70-1.30); GLOMERULAR FILTRATION RATE 88.6 (>35); POTASSIUM SERUM 4.2 MMOL/L (3.5-5.1); SODIUM LEVEL 142.0 MMOL/L (136-145)
[2025-06-01 13:31] LABS: INR 1.12
[2025-06-01 17:43] LABS: STABLE ALKPHOS 45.0 U/L
[2025-06-01 17:44] LABS: % LABILE ALKALINE PHOSPHATASE 54.5 %; LABILE ALKPHOS 54.0 U/L
== END ==
LOC: M LAB 11:31
PROVIDERS: ATTEND Internal Medicine Gastroenterology
DX: K74.00 Hepatic fibrosis, unspecified (principal); K50.00 Crohn's disease of small intestine without complications; K59.1 Functional diarrhea; K44.9 Diaphragmatic hernia without obstruction or gangrene; K57.30 Diverticulosis of large intestine without perforation or abscess without bleeding; Z86.0101 Personal history of adenomatous and serrated colon polyps

== ENCOUNTER → 2025-06-06 | Outpatient (CLI) | payer MEDICARE ==
[~2025-06-06] MED LIST changes: +ISOVUE-370 76% 100 ML VIAL As Ordered ONE
== END ==
LOC: M RAD 08:40
PROVIDERS: ATTEND Internal Medicine Gastroenterology
DX: K50.00 Crohn's disease of small intestine without complications (principal); K57.30 Diverticulosis of large intestine without perforation or abscess without bleeding; K74.00 Hepatic fibrosis, unspecified; K59.1 Functional diarrhea; K44.9 Diaphragmatic hernia without obstruction or gangrene; Z86.0100 Personal history of colon polyps, unspecified
CPT/HCPCS: 74177; Q9967